=== PATIENT | male | born 1970 | race Caucasian/White ===

== ENCOUNTER 2018-07-12 06:14 | Day surgery (SDC) | payer BC ==
[2018-07-12] MEDS ORDERED: ONDANSETRON 4 MG INJ IV (08:00)
[2018-07-12] MEDS ORDERED: FENTAnyl 50 MCG/ML VIAL (08:07)
[2018-07-12] MEDS ORDERED: PROPOFOL 20 ML (08:07)
== END 2018-07-12 12:51 | disposition home or self-care (01) ==
LOC: GIL 06:14
DX: D12.3 Benign neoplasm of transverse colon (principal); K29.50 Unspecified chronic gastritis without bleeding; K64.8 Other hemorrhoids; Z80.0 Family history of malignant neoplasm of digestive organs
CPT/HCPCS: 43239; 88305; 88312